=== PATIENT | female | born 1965 | race Caucasian/White ===

== ENCOUNTER 2023-05-29 09:57 | Outpatient (CLI) | payer BC, SELFPAY | END 2023-05-29 09:58 | disposition home or self-care (01) | PROVIDERS: PCP Student in an Organized Health Care Education/Training Program; Visit Provider Orthopaedic Surgery Sports Medicine | DX: Z01.818 Encounter for other preprocedural examination (principal) | CPT/HCPCS: 36415; 86850; 86900; 86901 ==

== ENCOUNTER 2023-05-31 10:09 | Day surgery (SDC) | payer BC, SELFPAY ==
[2023-05-31] VITALS (23 sets, daily range): BP systolic 93–149; BP diastolic 58–88; PULSE 51–86; RESP 16–20; TEMP 36.5–37; O2SAT 95–99; BMI 32.1
[2023-05-31] MEDS: LACTATED RINGERS 1000 ML 1,000 ML 100 ML IV (09:20)
--- NOTE | 2023-05-31 11:12 | PM.IMPN1 ---
Progress Note: A&P Assessment and plan (1) Degenerative joint disease of left hip: Problem details: Severe, [id number] Status: Acute Assessment and Plan: s/p LTHA pain control; diet, dvt ppx per surgery hgb in am Subjective Date Seen: 05/31/23 Interval history: PREOPERATIVE DIAGNOSIS: 1. Left hip osteoarthritis, severe, primary PROCEDURE: 1. Left total hip arthroplasty-anterior approach ANESTHESIA: Spinal anesthetic EBL: 250 ml patient stable following surgery tolerating diet denies CP, sob Exam Narrative: Exam Narrative: Gen: no acute distress HEENT: NCAT EOMI mmm Neck: Supple CV: RRR normal s1 s2 Lungs: CTAB Abd: Soft,nt, nd Neuro: Alert, oriented, CN grossly intact; nonfocal screening?exam Psych: appropriate affect MSK: age appropriate muscle mass Skin; Warm, dry no rash on face Const: Vital Signs, click to edit/add: Vital Signs - 24 hr 05/31/23 10:52 Temperature 98.6 F Pulse Rate 71 Respiratory Rate 20 Blood Pressure 146/83 H Pulse Oximetry 96 Oxygen Delivery Me thod Room Air
[2023-05-31] MEDS: SODIUM CHLORIDE 0.9 % (FLUSH) 10 ML SYRINGE IVF (11:23)
[2023-05-31] MEDS: CELECOXIB 200 MG CAPSULE PO ×2 (11:50→21:10)
[2023-05-31] MEDS: ACETAMINOPHEN 500 MG TABLET 1000 MG PO ×2 (11:50→18:40)
[2023-05-31] MEDS: SCOPOLAMINE 1 MG/3 DAY PATCH 1 PATCH TRANSDERMA (12:15)
--- NOTE | 2023-05-31 12:15 | CRLHL7_ITS ---
For Patients: As a result of the Cures Act, medical imaging exams and procedure reports are released immediately into your electronic medical record. You may view this report before your referring provider. If you have questions, please contact your health care provider. Indication: Hip replacement surgery Technique: AP hip fluoroscopic image. Fluoroscopy time 29.4 seconds. Findings/Impression: Hardware from a left total hip arthroplasty is in satisfactory position. Dictated by Marcelino Woo MD @ 06/01/2023 8:52:04 AM (Electronically Signed)
[2023-05-31] MEDS: MIDAZOLAM HCL 1 MG/ML inj IVP (12:20)
[2023-05-31] MEDS: fentaNYL 100 MCG/2 ML inj IVP (12:20)
--- NOTE | 2023-05-31 12:28 | P.NB_ITS ---
Nerve Block Nerve Block Time Seen by Provider: 12:22 Date Seen: 05/31/23 Type of block requested by surgeon for post-operative analgesia: JESSICA/LFCN Side: left Time out performed: Yes Verification of patient name: Yes Verification of date of : Yes Site marking: site marked Name of person performing procedure: Coleman Continuous monitoring Was continuous monitoring of O2 sat, B/P, clinical research monitor, recorded every 15 minutes?: Yes Procedure Checklist: sterile prep, needles and gloves Ultrasound guided. Images saved: Yes Medications given in 5ml increments after negative aspiration: Ropivicaine %: 0.5 mL: 30 Needle gauge: 20 Decadron (mg): 10 Precedex (mcg): 25 Patient tolerated procedure well: Yes Additional comments: Needle noted below psoas tendon needle noted adjacent to LFCN Block Charges Block Charge (with Pro Fee): Other Periph Nerve Block Use of Ultrasound Machine for Block: Yes- US Guidance/pain block
--- NOTE | 2023-05-31 12:28 | W.ANESCHARGE ---
Anesthesia Charges Start Date/Time Anesthesia Start Date: 05/31/23 Anesthesia Start Time: 13:25 Stop Date/Time Anesthesia Stop Date: 05/31/23 Anesthesia Stop Time: 15:38
--- NOTE | 2023-05-31 12:35 | SUR.PREOP ---
TIME?OUT:?1217, left hip PT/RN/MDA?VERIFICATION?OF?SURGICAL?SITE,?PROCEDURE,?AND?CONSENT OBTAINED?PRIOR?TO?INVASIVE?PROCEDURE.
--- NOTE | 2023-05-31 15:30 | CRLHL7_ITS ---
For Patients: As a result of the Cures Act, medical imaging exams and procedure reports are released immediately into your electronic medical record. You may view this report before your referring provider. If you have questions, please contact your health care provider. INDICATION: Hip arthroplasty AP pelvis left hip views FINDINGS: Left hip arthroplasty in satisfactory position. Postoperative soft tissue gas. Advanced degenerative change of the right hip. Dictated by Chanelle Hyman MD @ 05/31/2023 6:17:29 PM (Electronically Signed)
--- NOTE | 2023-05-31 15:32 | PM.ORPRC ---
Procedure Note Date of procedure: 05/31/23 Procedure: PREOPERATIVE DIAGNOSIS: 1. Left hip osteoarthritis, severe, primary POSTOPERATIVE DIAGNOSIS: 1. Left hip osteoarthritis, severe, primary PROCEDURE: 1. Left total hip arthroplasty-anterior approach 2. 62581 - intraoperative fluoroscopy up to 1 hour. SURGEON: Jae Sanders MD. SUPERCHARGE REPAIR SUPERVISOR: Gulshan Bryant Pa-c; BARBI Wilkinson - Of note, a skilled assistant womens volleyball coach was critical for this case to aid in patient positioning, tissue retraction, limb manipulation/positioning, dislocation/relocation, patient safety, and closure. ANESTHESIA: Spinal anesthetic EBL: 250 ml IMPLANTS: DePuy J[employer]J uncemented total hip Towanda cup size 48, hole eliminator, +0 neutral liner Actis stem, standard offset, size 6 +1 mm ceramic 32mm head. COMPLICATIONS: None evident INDICATIONS: The patient is a pleasant 57-year-old female who has experienced severe left hip pain and difficulty bearing weight. Workup included x-rays which revealed severe osteoarthrosis in the hip. Given the deformity, the dysfunction, and the pain, as well as the failure of nonoperative management, recommendation was made for surgery. FINDINGS: Full-thickness extensive chondral loss throughout the femoral head. Large osteophytes around the acetabulum. Small effusion upon entering the joint. DESCRIPTION OF PROCEDURE: Following a thorough discussion of risks, benefits, and alternatives consent was obtained and the left hip was marked. The patient was brought to the operating room and placed supine on the operating table. Induction of anesthesia was undertaken. 2 g IV Ancef and 1 g tranexamic acid was administered within 1 hr of incision preoperatively. Proper time-out was performed identifying proper patient, site, procedure. The operative extremity was prepped and draped in the appropriate sterile fashion using ChloraPrep after the patient was positioned on the [place] table with head in neutral alignment and all bony prominences well padded. C-arm fluoroscopic imaging was utilized to confirm proper pelvis rotation and position, and to get true AP films of both the contralateral left, and the affected left hip. This is for comparison. A longitudinal incision was made starting approximately 1 cm distal to the ASIS, and 3-4 cm lateral. The incision was extended distally aiming toward the lateral border the patella. Sharp incision through skin and bovie cautery through the subcutaneous tissue allowed identification of the TFL fascia. This was sharply divided, and the fascia bluntly released from the muscle fibers as we dissected medial. Upon coming to the medial border, we were able to retract the TFL laterally, and penetrated the deeper fascia and identify the crossing circumflex vessels. These were ligated/cauterized. The rectus was elevated from the capsule, and retractors placed laterally and medially along the femoral neck to help with visualization of the capsule. We then performed an inverted T capsulotomy. The capsule was tagged for later repair. Retractors were placed inside the capsule. The femoral neck was visualized after releasing medially down to the lesser trochanter, along the saddle laterally, and up onto the acetabulum. The femoral neck cut was made in line with our preoperative templating. The head was removed in a single piece, and sized. We turned our attention to acetabular preparation. Initially, the labrum was resected from around the perimeter, the pulvinar was excised, allowing us to visualize the false wall. We started the reaming with a 43 mm reamer. This was medialized down to the true wall. We then enlarged our reamers sequentially up to one size less than the selected cup size. We trialed at the same size and found it to have an excellent fit. The selected cup was then opened, inserted, and impacted in line with the goal of 40-45? of abduction, and 20-25? of anteversion. This was confirmed on C-arm fluoroscopic imaging to be in the appropriate/goal position. Once the cup was placed we placed a hole eliminator and a liner consistent with preop planning. Attention was turned to the femoral preparation. The limb was extended, externally rotated, and adducted. The posteromedial capsule was released, as retractors were placed allowing excellent access to the proximal femur. Initially a box covering machine operator was followed by canal finder followed by various broaches. We broached sequentially up to size noted above, found it to have excellent rotational control, and trialing various heads and necks, revealed that appropriate neck offset, and the above noted head size provided the greatest stability, and baptist of length, and offset. C-arm fluoroscopic imaging confirmed position of the stem, as well as leg lengths, which were compared with the pre procedure all fluoroscopic images. Trial implants were removed, the real femoral stem inserted, as was the ceramic head. After reducing, the leg was placed through range of motion and stability was confirmed anterior, posterior, and lateral. A 3 min Betadine soak was then performed, and thorough irrigation with normal saline followed. Closure of the capsule was performed with #1 PDS. Bleeding was confirmed to be controlled at this stage, and the TFL fascia was closed with #0 strata fix. Subcutaneous, and subcuticular closure was performed with 2-0 Vicryl and 4-0 Monocryl, respectively. Dressings were applied, and the patient was awoken from anesthesia and transferred the PACU in stable condition. A skilled assistant womens volleyball coach was critical for this case to aid in patient positioning, tissue retraction, proximal femur exposure, limb manipulation/positioning, dislocation/relocation, patient safety, and closure. PLAN: 1. Weight bear as tolerated operative extremity. 2. 23 hr perioperative antibiotics. 3. Ice. 4. PT/OT consults for ambulation assistance/mobility education. 5. Social work consult for discharge planning. 6. DVT prophylaxis with at SCDs, Dieudonne Hose, and Xarelto x5 days followed by aspirin for a total of 1 month..
--- NOTE | 2023-05-31 15:46 | W.ANESCHARGE ---
Anesthesia Charges Start Date/Time Anesthesia Start Date: 05/31/23 Anesthesia Start Time: 13:25 Stop Date/Time Anesthesia Stop Date: 05/31/23 Anesthesia Stop Time: 15:38
[2023-05-31] MEDS: CEFAZOLIN 2 GM in 0.9 % SODIUM CHLORIDE Mini-bag 100 ML IVPB (19:47)
[2023-05-31] MEDS: SENNOSIDES 1 TAB TABLET 2 TAB PO (21:10)
--- NOTE | 2023-05-31 22:46 | PC.NURSE ---
Shift [id number]- Patient arrives from PACU at approximately 1615. Pain is well-controlled, she declines narcotic pain medication thus far. She is up with assist of 1, walker, gait belt and tolerates well. Is eating ,drinking, and voiding without issue. IV is saline locked. Dressing is clean, dry and intact. and bedside and supportive.
[2023-06-01] MEDS: ACETAMINOPHEN 500 MG TABLET 1000 MG PO ×2 (00:06→05:52)
[2023-06-01 02:40] VITALS: BP 125/71; PULSE 64; RESP 18; TEMP 36.5; O2SAT 99
[2023-06-01] MEDS: CEFAZOLIN 2 GM in 0.9 % SODIUM CHLORIDE Mini-bag 100 ML IVPB (03:40)
--- NOTE | 2023-06-01 06:19 | PC.NURSE ---
Shift note: Pt is pleasant and cooperate with care and treatment, A/O. Dressing appears clean and dry. Pain level has been rated at 2. Pt had frequency of micturition, 5x tonight. Saline locked. Pt tolerated regular diet well without any complication. Passed gas but no BM yet. Active bowel sound and clear lung sound. Ambulate with A1, walker and GB. Sleep was interupted with urinary frequency.
[2023-06-01 07:02] LABS: Basophils Absolute Auto 0.01 K/uL (0.00-0.30); Basophils Percent Auto 0.1 % (0.0-3.0); Hematocrit 34.5 % (33.0-51.0); Immature Granulocytes Abs Auto 0.02 K/uL (0.00-0.30); Immature Granulocytes Pct Auto 0.2 %; Lymphocytes Percent Auto 10.7 % (20-44); Mean Corpuscular HGB Conc 35 gm/dL (32-36); Mean Corpuscular Hemoglobin 29 pg (26-34); Mean Corpuscular Volume 84 fL (80-100); Monocytes Percent Auto 8.1 % (0.0-11.0); Neutrophils Percent Auto 80.9 % (42.0-72.0); Platelet Count* 202 K/uL (140-440); RDW Coefficient of Variation % 11.5 % (11.5-15.5); Red Blood Count 4.13 m/uL (4.00-5.20); White Blood Count* 9.62 K/uL (4.50-11.00)
[2023-06-01 07:04] LABS: Slide Review Reflex No
[2023-06-01 07:16] LABS: Potassium* 3.9 mmol/L (3.6-5.1); Sodium* 139 mmol/L (135-149)
[2023-06-01 07:19] LABS: Creatinine* 0.6 mg/dL (0.5-1.5); Est. Creatinine Clearance* 90.84; Estimated Glomerular Filt Rate 103 ml/min
[2023-06-01 07:20] LABS: Blood Urea Nitrogen* 11 mg/dL (7-30)
[2023-06-01] MEDS: SENNOSIDES 1 TAB TABLET 2 TAB PO (08:05)
[2023-06-01] MEDS: RIVAROXABAN 10 MG TABLET PO (08:05)
[2023-06-01] MEDS: CELECOXIB 200 MG CAPSULE PO (08:05)
[2023-06-01 08:12] VITALS: BP 118/77; PULSE 65; RESP 16; TEMP 37.1; O2SAT 99
--- NOTE | 2023-06-01 09:34 | P.ORPN_ITS ---
Subjective Subjective Date Seen: 06/01/23 Principal diagnosis: Status postop day 1, left total hip arthroplasty - anterior approach Interval history: Patient reports doing well. No acute events over night. Complaining of more left buttock pain than thigh pain. Pain managed with scheduled and PRN medications, ice. Does not want to take oral narcotics. DVT prophylaxis: Rivaroxaban, bilateral knee high Dieudonne stockings, SCDs, walking. Denies fevers, chills, aches, N/V, CP, SOB/PERERA, or lightheadedness. Ortho Exam Narrative Exam Narrative: -Patient appears comfortable in bed performing physical therapy exercises; PT present; no apparent acute distress -Alert and oriented times 3 -Operative hip swollen; soft tissues supple; no obvious erythema. Ecchymosis mi nimal. Warmth appropriate -Surgical dressing clean, dry, intact; no obvious drainage, no erythematous streaking peripheral to the bandage -Bilateral calves soft and supple; no significant swelling, edema, tenderness, erythema, discoloration, warmth, or palpable cords -2+ DP/PT pulses, intact dermatomes and myotomes distally (5/5 strength). No numbness about the lateral femoral cutaneous nerve distribution. Const Vital Signs, click to edit/add: Vital Signs - 24 hr 05/31/23 10:52 05/31/23 12:20 05/31/23 12:30 Temperature 98.6 F Pulse Rate 71 64 70 Pulse Rate [Right Pulse Oximeter] Respiratory Rate 20 20 20 Blood Pressure 146/83 H 117/58 L 104/69 Blood Pressure [Left Arm] Pulse Oximetry 96 98 98 Oxygen Delivery Method Room Air Nasal Cannula Nasal Cannula Oxygen Flow Rate 3 3 05/31/23 12:40 05/31/23 15:35 05/31/23 15:40 Temperature 97.8 F Pulse Rate 67 86 82 Pulse Rate [Right Pulse Oximeter] Respiratory Rate 20 16 18 Blood Pressure 106/62 99/62 100/68 Blood Pressure [Left Arm] Pulse Oximetry 97 95 96 Oxygen Delivery Method Nasal Cannula Room Air Room Air Oxygen Flow Rate 3 05/31/23 15:45 05/31/23 15:50 05/31/23 15:55 Temperature 97.7 F Pulse Rate 65 64 72 Pulse Rate [Right Pulse Oximeter] Respiratory Rate 18 18 18 Blood Pressure 101/75 100/86 102/78 Blood Pressure [Left Arm] Pulse Oximetry 96 99 98 Oxygen Delivery Method Room Air Room Air Room Air Oxygen Flow Rate 05/31/23 16:00 05/31/23 16:05 05/31/23 16:15 Temperature 98.1 F 98 F Pulse Rate 66 62 73 Pulse Rate [Right Pulse Oximeter] Respiratory Rate 18 18 18 Blood Pressure 113/73 108/68 Blood Pressure [Left Arm] 117/87 Pulse Oximetry 97 97 Oxygen Delivery Method Room Air Room Air Room Air Oxygen Flow Rate 3 05/31/23 16:15 05/31/23 16:30 05/31/23 16:45 Temperature 98 F Pulse Rate Pulse Rate [Right Pulse Oximeter] 73 63 57 L Respiratory Rate 18 18 18 Blood Pressure Blood Pressure [Left Arm] 117/87 117/70 108/79 Pulse Oximetry 99 98 98 Oxygen Delivery Method Room Air Room Air Room Air Oxygen Flow Rate 05/31/23 17:00 05/31/23 17:15 05/31/23 17:30 Temperature Pulse Rate Pulse Rate [Right Pulse Oximeter] 59 L 65 65 Respiratory Rate 18 18 18 Blood Pressure Blood Pressure [Left Arm] 93/72 113/86 121/85 Pulse Oximetry 96 98 98 Oxygen Delivery Method Room Air Room Air Room Air Oxygen Flow Rate 05/31/23 18:00 05/31/23 19:00 05/31/23 20:00 Temperature 98.4 F Pulse Rate Pulse Rate [Right Pulse Oximeter] 51 L 58 L 57 L Respiratory Rate 18 18 18 Blood Pressure Blood Pressure [Left Arm] 120/68 131/84 121/72 Pulse Oximetry 98 98 97 Oxygen Delivery Method Room Air Room Air Room Air Oxygen Flow Rate 05/31/23 21:00 05/31/23 22:00 05/31/23 23:00 Temperature 98.3 F Pulse Rate Pulse Rate [Right Pulse Oximeter] 57 L 60 60 Respiratory Rate 18 18 18 Blood Pressure Blood Pressure [Left Arm] 132/82 123/80 149/88 H Pulse Oximetry 98 96 98 Oxygen Delivery Method Room Air Room Air Room Air Oxygen Flow Rate 06/01/23 02:40 06/01/23 08:12 Temperature 97.7 F 98.8 F Pulse Rate Pulse Rate [Right Pulse Oximeter] 64 65 Respiratory Rate 18 16 Blood Pressure Blood Pressure [Left Arm] 125/71 118/77 Pulse Oximetry 99 99 Oxygen Delivery Method Room Air Room Air Oxygen Flow Rate Assessment and Plan Assessment and plan (1) Degenerative joint disease of left hip: Problem details: Severe, [id number] Status: Acute (2) Status post total hip replacement, left: Problem details: 05/31/2023 Status: Acute Plan - Complete 23 hour perioperative antibiotics. - PT/OT consult for education and assistance. - Social work consult for discharge planning - Prescribed analgesics as needed - will cancel oxycodone, prescribed tramadol. - DVT prophylaxis: Rivaroxaban, bilateral knee high Dieudonne Hose stockings and SCDs - Anticipation is for discharge to home with spouse today 06/01/2023 if the patient remains medically stable, pain is controlled, and they are safe with mob ilization.
--- NOTE | 2023-06-01 11:06 | PC.NURSE ---
Patient discharged home with . DC instructions and follow up appointments reviewed and understood by patient. Patient did not want to take any tramadol prior to DC. Will cigar packer and picker prescription for this at pharmacy to have at home just incase. Was asking for a prescription for celebrex. SHANNON Gaffney, recommended holding until 06/07 once xarelto is complete. Patient will get a new script from her PCP for this after 06/07. PIV taken out and catheter inact. Incision clean, dry and intact. VS within normal limits. Pain well controlled. Tolerating a regular diet. Had 2 BMs this morning and voiding without difficulty. Ambulated with assist of 1 and a walker. All questions answered and left via wheelchair escort.
--- NOTE | 2023-06-01 11:14 | PC.NURSE ---
SHANNON Gaffney ended up prescribing Celebrex for patient as he does not want them to use ibuprofen until completed with aspirin. Celebrex should be held until 06/07 until xarelto is done.
== END 2023-06-01 11:05 | disposition home or self-care (01) ==
LOC: OR 10:12 → MEDSURG 10:15
PROVIDERS: PCP Student in an Organized Health Care Education/Training Program; Visit Provider Orthopaedic Surgery Sports Medicine
PROC: (CPT 27130; principal; 2023-05-31 12:15)
DX: M16.12 Unilateral primary osteoarthritis, left hip (principal); G89.18 Other acute postprocedural pain
CPT/HCPCS: 27130; 1214; 36415; 64450; 73501; 76000; 76942; 82565; 84132; 84295; 84520; 85025; 97110; 97116; 97161; 97165; 97535; A9270; C1776; J0690; J1100; J2250; J2371; J2704; J2795; J3010; J3490; J7120

== ENCOUNTER 2023-08-31 14:30 | Outpatient (RCR) | payer BC, SELFPAY | END 2023-09-28 12:04 | disposition home or self-care (01) | PROVIDERS: Visit Provider Orthopaedic Surgery Sports Medicine | DX: M16.12 Unilateral primary osteoarthritis, left hip (principal); Z96.642 Presence of left artificial hip joint; R26.81 Unsteadiness on feet; R26.89 Other abnormalities of gait and mobility; R53.1 Weakness; R52 Pain, unspecified; Z51.89 Encounter for other specified aftercare | CPT/HCPCS: 97110; 97112; 97116; 97140; 97161; 97164; 97535 ==